=== PATIENT | female | born 1955 | race Caucasian/White ===

== ENCOUNTER 2022-08-05 09:52 | Outpatient (OUT) | payer BC, SELFPAY ==
--- NOTE | 2022-08-05 10:09 | MM_ITS ---
Patient: KASSI MONAHAN Exam Date: 08/05/2022 : 1955 Gender:F Ordering : DR Ismael Reese . Admission #: [id number] Family : Order #: [id number] CLICK HERE TO VIEW EXAM RADIOLOGY REPORT PROCEDURE: MM TOMOSYNTHESIS SCREENING BI COMPARISON: MG MAMM SCREEN 3D NANDO CAD, 07/20/2021. INDICATIONS: Screening Calculator Name NCI Breast Cancer Risk Assessment Tool 5 Year Breast Cancer Risk 3.50% Lifetime Breast Cancer Risk 11.10% Personal Breast Cancer No Personal Ovarian Cancer No Treatments None Family Cancers Grandmother-maternal with breast cancer at age 60; Mother with skin cancer at age 58; Sister with skin cancer at age ~40; Brother with skin cancer at age ~60. LOCATION: The [facility] BREAST COMPOSITION: Extremely dense, which lowers the sensitivity of mammography. FINDINGS: DIAGNOSTIC CATEGORY 0--INCOMPLETE: NEED ADDITIONAL IMAGING EVALUATION. RIGHT BREAST: 15 x 8 x 7 mm partially circumscribed mass within the upper outer mid breast. Spot magnification views and ultrasound evaluation recommended. LEFT BREAST: No significant suspicious finding. RECOMMENDATIONS: ADDITIONAL MAMMOGRAPHIC VIEWS REQUIRED: RIGHT BREAST - RIGHT CRANIOCAUDAL SPOT MAGNIFICATION VIEW - RIGHT OBLIQUE SPOT MAGNIFICATION VIEW - ULTRASOUND: RIGHT BREAST PLEASE NOTE: A NORMAL MAMMOGRAM DOES NOT EXCLUDE THE POSSIBILITY OF BREAST CANCER. A CLINICALLY SUSPICIOUS PALPABLE LUMP SHOULD BE BIOPSIED. Dictated by: Jose Barajas M.D. on 08/05/2022 at 13:21 Approved by: Jose Barajas M.D. on 08/05/2022 at 13:30
--- NOTE | 2022-08-05 10:16 | XR_ITS ---
[address] [address] Patient Name: KASSI MONAHAN MRN: [id number] date: 1955 Sex: F Assigned Patient Location: [facility] Current Patient Location: [facility] Accession/Order Number: [id number] Exam Date: 08/05/2022 10:30 Report Date: 08/05/2022 10:50 At the request of: GUY ESTES Procedure: XR DEXA axial skeleton EXAMINATION: XR DEXA axial skeleton HISTORY: Osteoporosis M81.0 COMPARISON: DEXA bone densitometry 08/01/2020 TECHNIQUE: Dual-energy X-ray absorptiometry (DXA) was performed. FINDINGS: FOREARM ANALYSIS: Average bone mineral density is 0.5-0 g/cm2. T-score (standard deviation relative to young adult mean): -2.7 . -9.7% change since prior study. Right femoral trochanter Lowest bone mineral density is within the 0.511, -3.0 g/cm2. T-score (standard deviation relative to young adult mean): -0.5% change since prior study. . IMPRESSION: World Rudy Organization Classification: Osteoporosis - High Fracture Risk Electronically authenticated by: ABIOLA VILLASEÑOR Date: 08/05/2022 10:50
== END 2022-08-05 09:53 ==
PROVIDERS: PCP Obstetrics & Gynecology; Visit Provider Obstetrics & Gynecology
DX: Z12.31 Encounter for screening mammogram for malignant neoplasm of breast (principal); Z80.3 Family history of malignant neoplasm of breast; Z80.8 Family history of malignant neoplasm of other organs or systems; M81.0 Age-related osteoporosis without current pathological fracture
CPT/HCPCS: 77063; 77067; 77080

== ENCOUNTER 2022-08-23 13:13 | Outpatient (OUT) | payer BC, SELFPAY ==
--- NOTE | 2022-08-23 13:17 | US_ITS ---
Patient: KASSI MONAHAN Exam Date: 08/23/2022 : 1955 Gender:F Ordering : DR Ismael Reese . Admission #: [id number] Family : Order #: [id number] CLICK HERE TO VIEW EXAM RADIOLOGY REPORT PROCEDURE: MAMMOGRAM RIGHT DIAGNOSTIC DIGITAL FOLLOW UP, 08/23/2022, 13:06 US BREAST RT LIMITED, 08/23/2022, 14:18 COMPARISON: MM TOMOSYNTHESIS SCREENING BI, 08/05/2022. INDICATIONS: abnormal mammogram R92.8 Calculator Name NCI Breast Cancer Risk Assessment Tool 5 Year Breast Cancer Risk 3.50% Lifetime Breast Cancer Risk 11.10% Personal Breast Cancer No Personal Ovarian Cancer No Treatments None Family Cancers Grandmother-maternal with breast cancer at age 60; Mother with skin cancer at age 58; Sister with skin cancer at age ~40; Brother with skin cancer at age ~60. LOCATION: [facility] BREAST COMPOSITION: Extremely dense, which lowers the sensitivity of mammography. FINDINGS: DIAGNOSTIC CATEGORY 3--PROBABLY BENIGN FINDING. THE FOLLOWING FINDING(S) HAS A HIGH PROBABILITY OF A BENIGN ETIOLOGY: Three spot compression images demonstrate a persistent. Ultrasound demonstrates at the 10 o'clock position in oval lobular well-defined 8.1 x 2.3 x 4.7 mm area of heterogeneous hypo echogenicity. Six-month follow-up mammogram and ultrasound is recommended to document stability. Additionally noted at the 9 o'clock position is a 3.6 mm area of anechoic echogenicity with slight increased acoustic through transmission felt to be a simple cyst RECOMMENDATIONS: SHORT TERM FOLLOW-UP DIAGNOSTIC MAMMOGRAM RIGHT BREAST IN 6 MONTHS. SHORT TERM FOLLOW-UP ULTRASOUND RIGHT BREAST IN 6 MONTHS. PLEASE NOTE: A NORMAL MAMMOGRAM DOES NOT EXCLUDE THE POSSIBILITY OF BREAST CANCER. A CLINICALLY SUSPICIOUS PALPABLE LUMP SHOULD BE BIOPSIED. Dictated by: Davon Horton MD on 08/23/2022 at 14:35 Approved by: Davon Horton MD on 08/23/2022 at 14:38
== END 2022-08-23 13:14 | disposition home or self-care (01) ==
LOC: MAMMO 13:14
PROVIDERS: PCP Obstetrics & Gynecology; Visit Provider Obstetrics & Gynecology
DX: R92.8 Other abnormal and inconclusive findings on diagnostic imaging of breast (principal); Z80.3 Family history of malignant neoplasm of breast; Z80.8 Family history of malignant neoplasm of other organs or systems
CPT/HCPCS: 76642; 77065

== ENCOUNTER 2023-03-20 10:46 | Outpatient (OUT) | payer BC, SELFPAY ==
--- NOTE | 2023-03-20 10:55 | MM_ITS ---
Patient Name: KASSI MONAHAN MR#: [id number] : 1955 Exam Date: 03/20/2023 Ordering Doctor: DR Ismael Reese . RADIOLOGY REPORT PROCEDURE: MM TOMOSYNTHESIS DIAGNOSTIC RT, 03/20/2023, 11:04 US BREAST RT LIMITED, 03/20/2023, 11:34 COMPARISON: US BREAST RT LIMITED, 03/20/2023. US BREAST RT LIMITED, 08/23/2022. MM DIAGNOSTIC MAMMO UNILAT RT, 08/23/2022. INDICATIONS: breast pain N64.4 Calculator Name NCI Breast Cancer Risk Assessment Tool 5 Year Breast Cancer Risk 3.50% Lifetime Breast Cancer Risk 10.60% Personal Breast Cancer No Personal Ovarian Cancer No Treatments None Family Cancers Grandmother-maternal with breast cancer at age 60; Mother with skin cancer at age 58; Sister with skin cancer at age ~40; Brother with skin cancer at age ~60. LOCATION: The [facility] BREAST COMPOSITION: Extremely dense, which lowers the sensitivity of mammography. FINDINGS: DIAGNOSTIC CATEGORY 2--BENIGN FINDING. NO CHANGE FROM COMPARISON. The right breast is stable in size and overall fibroglandular configuration. A 6.8 x 3.8 mm oval nodules identified in the upper outer quadrant. Ultrasound demonstrates at the 9 o'clock position a 3.6 mm area of anechoic echogenicity, stable. Identified at the 10 o'clock position is a stable area of oval hypo echogenicity measuring 4.8 x 3.1 x 3.9 cm. Given the stability on the mammogram and ultrasound. No further evaluation is required. The patient is due a bilateral screening mammogram August of 2023 RECOMMENDATIONS: ROUTINE MAMMOGRAM AND CLINICAL EVALUATION IN 12 MONTHS. PLEASE NOTE: A NORMAL MAMMOGRAM DOES NOT EXCLUDE THE POSSIBILITY OF BREAST CANCER. A CLINICALLY SUSPICIOUS PALPABLE LUMP SHOULD BE BIOPSIED. Dictated by: Davon Horton MD on 03/20/2023 at 12:00 Approved by: Davon Horton MD on 03/20/2023 at 12:04
--- NOTE | 2023-03-20 11:10 | US_ITS ---
Patient Name: KASSI MONAHAN MR#: [id number] : 1955 Exam Date: 03/20/2023 Ordering Doctor: DR Ismael Reese . RADIOLOGY REPORT PROCEDURE: MM TOMOSYNTHESIS DIAGNOSTIC RT, 03/20/2023, 11:04 US BREAST RT LIMITED, 03/20/2023, 11:34 COMPARISON: US BREAST RT LIMITED, 03/20/2023. US BREAST RT LIMITED, 08/23/2022. MM DIAGNOSTIC MAMMO UNILAT RT, 08/23/2022. INDICATIONS: breast pain N64.4 Calculator Name NCI Breast Cancer Risk Assessment Tool 5 Year Breast Cancer Risk 3.50% Lifetime Breast Cancer Risk 10.60% Personal Breast Cancer No Personal Ovarian Cancer No Treatments None Family Cancers Grandmother-maternal with breast cancer at age 60; Mother with skin cancer at age 58; Sister with skin cancer at age ~40; Brother with skin cancer at age ~60. LOCATION: The [facility] BREAST COMPOSITION: Extremely dense, which lowers the sensitivity of mammography. FINDINGS: DIAGNOSTIC CATEGORY 2--BENIGN FINDING. NO CHANGE FROM COMPARISON. The right breast is stable in size and overall fibroglandular configuration. A 6.8 x 3.8 mm oval nodules identified in the upper outer quadrant. Ultrasound demonstrates at the 9 o'clock position a 3.6 mm area of anechoic echogenicity, stable. Identified at the 10 o'clock position is a stable area of oval hypo echogenicity measuring 4.8 x 3.1 x 3.9 cm. Given the stability on the mammogram and ultrasound. No further evaluation is required. The patient is due a bilateral screening mammogram August of 2023 RECOMMENDATIONS: ROUTINE MAMMOGRAM AND CLINICAL EVALUATION IN 12 MONTHS. PLEASE NOTE: A NORMAL MAMMOGRAM DOES NOT EXCLUDE THE POSSIBILITY OF BREAST CANCER. A CLINICALLY SUSPICIOUS PALPABLE LUMP SHOULD BE BIOPSIED. Dictated by: Davon Horton MD on 03/20/2023 at 12:00 Approved by: Davon Horton MD on 03/20/2023 at 12:04
== END 2023-03-20 10:47 | disposition home or self-care (01) ==
LOC: MAMMO 10:46
PROVIDERS: PCP Obstetrics & Gynecology; Visit Provider Obstetrics & Gynecology
DX: N64.4 Mastodynia (principal); Z80.3 Family history of malignant neoplasm of breast; Z80.8 Family history of malignant neoplasm of other organs or systems
CPT/HCPCS: 76642; 77065; G0279

== ENCOUNTER 2023-07-22 | Outpatient (REF) | payer BC, SELFPAY ==
[2023-07-25 21:07] LABS: Age Gdln ACOG Testing Note (.); Pap IG (Image Guided) Note (.)
== END 2023-07-22 00:01 | disposition home or self-care (01) ==
LOC: LAB
PROVIDERS: PCP Obstetrics & Gynecology; Visit Provider Obstetrics & Gynecology
DX: Z01.419 Encounter for gynecological examination (general) (routine) without abnormal findings (principal)
CPT/HCPCS: G0145

== ENCOUNTER 2023-10-27 10:03 | Outpatient (OUT) | payer BC, SELFPAY ==
--- NOTE | 2023-10-27 10:06 | MM_ITS ---
Patient Name: KASSI MONAHAN MR#: [id number] : 1955 Exam Date: 10/27/2023 Ordering Doctor: DR Ismael Reese . RADIOLOGY REPORT PROCEDURE: MM TOMOSYNTHESIS SCREENING BI COMPARISON: MM DIAGNOSTIC MAMMO UNILAT RT, 08/23/2022. MM TOMOSYNTHESIS DIAGNOSTIC RT, 03/20/2023. INDICATIONS: Screening Calculator Name NCI Breast Cancer Risk Assessment Tool 5 Year Breast Cancer Risk 3.50% Lifetime Breast Cancer Risk 10.60% Personal Breast Cancer No Personal Ovarian Cancer No Treatments None Family Cancers Grandmother-maternal with breast cancer at age 60; Mother with skin cancer at age 58; Sister with skin cancer at age ~40; Brother with skin cancer at age ~60. LOCATION: The [facility] BREAST COMPOSITION: The breasts are extremely dense, which lowers the sensitivity of mammography. FINDINGS: DIAGNOSTIC CATEGORY 2--BENIGN FINDING. NO CHANGE FROM COMPARISON. Scattered benign-appearing nodules are present. Scattered benign-appearing calcifications are present. Scattered benign-appearing lymph nodes are present. RIGHT BREAST: No significant suspicious finding. LEFT BREAST: No significant suspicious finding. RECOMMENDATIONS: ROUTINE MAMMOGRAM AND CLINICAL EVALUATION IN 12 MONTHS. PLEASE NOTE: A NORMAL MAMMOGRAM DOES NOT EXCLUDE THE POSSIBILITY OF BREAST CANCER. A CLINICALLY SUSPICIOUS PALPABLE LUMP SHOULD BE BIOPSIED. Dictated by: Davon Horton MD on 10/27/2023 at 16:04 Approved by: Davon Horton MD on 10/27/2023 at 16:07
== END 2023-10-27 10:04 | disposition home or self-care (01) ==
LOC: MAMMO 10:03
PROVIDERS: PCP Obstetrics & Gynecology; Visit Provider Obstetrics & Gynecology
DX: Z12.31 Encounter for screening mammogram for malignant neoplasm of breast (principal); Z80.3 Family history of malignant neoplasm of breast; Z80.8 Family history of malignant neoplasm of other organs or systems
CPT/HCPCS: 77063; 77067

== ENCOUNTER 2024-07-22 15:03 | Outpatient (REF) | payer BC, SELFPAY ==
--- OUTSIDE RECORDS SUMMARY | 2024-07-22 08:17 | XMS_ITS ---
Author Name Auto Generated Organization [facility] Care Team Providers Care Oil Changer Name Role Phone GUY ESTES Attending Unavailable PROBLEMS No Problem Records Found PROCEDURES No Procedure Records Found RESULTS No Result Records Found ALLERGIES No Allergies Records Found ENCOUNTERS ADMIT/DISCHARGE ACCOUNT NUMBER ADMITTING ENCOUNTER CLASS LOCATION SOURCE 07/22/2024/ 5 [id number] Ambulatory Building:[facility] EPIC PAYERS ENCOUNTER GUARANTOR PAYER SUBSCRIBER SOURCE 07/22/2024 KASSI STRATTON: [id number] [address] [place], [place] [address] [address]Jse: () Primary Insurance:[facility] licy Number: [id number] ctive Date:2022-03-03 ABIOLA STRATTON: [id number] [address] [place] [id number] [facility] EPIC
--- OUTSIDE RECORDS SUMMARY | 2024-07-22 08:30 | XMS_ITS | Encounter Summary ---
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 Name Role Phone Unavailable Primary Care Provider Unavailabl e Reason for Visit * Reason Comments Well Women Visit Encounter Details Date Type Department Care Team (Late st Contact Info) Description 07/22/2024 8:30 AM EDT Office Visit [facility] [address] [place] [address] Ismael Reese, DO [address] [place] [address] Well woman exam with routine gynecological exam; Breast cancer screening by mammogram; Postmenopausal state Social History Tobacco Use Types Packs/Day Years Used Date Smoking Tobacco: Never Smokeless Tobacco: Never Alcohol Use Standard Drinks/Week Comments Never 0 (1 standard drink = 0.6 oz pur e alcohol) Comments No Sex and Gender Information Value Date Recorded Sex Assigned at Not on file Legal Sex Female 6:43 PM EDT Gender Identity Not on file Sexual Orientation Not on file documented as of this encounter Last Filed Vital Signs Vital Sign Reading Time Taken Comments Blood Pressure 120/70 07/22/2024 8:32 AM EDT Pulse - - Temperature - - Respiratory Rate - - Oxygen Saturation - - Inhaled Oxygen Concentration - - Weight 69.8 kg (153 lb 12.8 oz) 07/22/2024 8:32 AM EDT Height - - Body Mass Index 25.59 07/22/2023 8:57 AM EDT documented in this encounter Progress Notes * Ivette Donnelly LPN - 07/22/2024 8:30 AM EDT Reason for Appointment: Patient ID: Eli Tineo is a 68 y.o. female who presents for Well Women Visit Patient presents today for Annual Exam. MEDICATIONS Current Outpatient Medications Medication Instructions ??? estradiol (ESTRACE) 0.5 mg, Oral, Daily ALLERGIES Allergies Allergen Reactions ??? Codeine GI intolerance PROBLEMS Active Ambulatory Problems Diagnosis Date Noted ??? No Active Ambulatory Problems Resolved Ambulatory Problems Diagnosis Date Noted ??? No Resolved Ambulatory Problems Past Medical History: Diagnosis Date ??? History of basal cell cancer ??? History of uterine fibroid ??? Hormone replacement therapy ??? Menopausal symptom ??? Osteoporosis (CMS/HCC) ??? Scoliosis ??? Yeast infection HISTORY PAST MEDICAL HISTORY SOCIAL HISTORY Past Medical History: Diagnosis Date ??? History of basal cell cancer ??? History of uterine fibroid ??? Hormone replacement therapy ??? Menopausal symptom ??? Osteoporosis (CMS/HCC) ??? Scoliosis ??? Yeast infection Social History Tobacco Use ??? Smoking status: Never ??? Smokeless tobacco: Never Substance Use Topics ??? Alcohol use: Never ??? Drug use: Never FAMILY HISTORY Family History Problem Relation Name Age of Onset ??? Sudden Father SURGICAL HISTORY Past Surgical History: Procedure Laterality Date ??? APPENDECTOMY ??? BREAST BIOPSY ??? TOTAL ABDOMINAL HYSTERECTOMY W/ BILATERAL SALPINGOOPHORECTOMY REVIEW OF SYSTEMS Review of Systems: Review of Systems Constitutional: Negative. HENT: Negative. Eyes: Negative. Respiratory: Negative. Cardiovascular: Negative. Gastrointestinal: Negative. Genitourinary: Negative. Musculoskeletal: Negative. Skin: Negative. Neurological: Negative. All other systems reviewed and are negative. Hematological: Negative. Endocrine: Negative. Allergic/Immunologic: Negative. OBJECTIVE Objective: Physical Exam Constitutional: Appearance: Normal appearance. She is well-developed. Genitourinary: Vulva normal. Vaginal cuff intact. Cervix is absent. Uterus is absent. Breasts: Breasts are soft. Right: Normal. Left: Normal. Cardiovascular: Rate and Rhythm: Normal rate and regular rhythm. Abdominal: General: Bowel sounds are normal. There is no distension. Palpations: Abdomen is soft. Tenderness: There is no abdominal tenderness. There is no guarding or rebound. Musculoskeletal: General: No swelling. Normal range of motion. Right lower leg: No edema. Left lower leg: No edema. Neurological: Mental Status: She is alert and oriented to person, place, and time. Skin: General: Skin is warm and dry. Psychiatric: Mood and Affect: Mood normal. Behavior: Behavior normal. Vitals and nursing note reviewed. Exam conducted with a aerophysics engineer present. Vitals: Estimated body mass index is 25.59 kg/m?? as calculated from the following: Height as of 07/22/23: 5' 5 . Weight as of this encounter: 153 lb 12.8 oz. BP: 120/70 No LMP recorded. Patient has had a hysterectomy. ASSESSMENT & PLAN ICD-10-CM 1. Well woman exam with routine gynecological exam Z01.419 THIN PREP TIS PAP AND HR HPV DNA 2. Breast cancer screening by mammogram Z12.31 Bilateral screening mammogram Bilateral screening mammogram 3. Postmenopausal state Z78.0 DEXA bone density Annual: Patient presents today for an annual exam. Patient states she is doing well and has no complaints. Pap was obtained without difficulty and patient given mammogram order to have scheduled/obtained. Orders Placed This Encounter Procedures ??? Bilateral screening mammogram ??? DEXA bone density Follow Up: Patient is to return in one year for annual unless needed otherwise. Patient will call office if she desires to have colonoscopy done and then referral can be made to Dr. Jackson. Documented by Ivette Donnelly LPN on behalf of: Ismael Reese DO documented in this encounter Plan of Treatment Upcoming Encounters Date Type Department Care Team (Late st Contact Info) Description 07/28/2025 9:00 AM EDT Office Visit [facility] [address] [place] [address] Ismael Reese DO [address] [place] [address] Scheduled Orders Name Type Priority Associated Diagnoses Orde r Schedule Bilateral screening mammogram Imaging Routine Breast cancer screening by mammogram Expected: 07/22/2024, Expires: 09/21/2025 DEXA bone density Imaging Routine Postmenopausal state Expected: 07/22/2024 (Approximate), Expires: 07/22/2025 THIN PREP TIS PAP AND HR HPV DNA Pathology and Cytology Routine Well woman exam with routine gynecological exam Ordered: 07/22/2024 documented as of this encounter Procedures Procedure Name Priority Date/Time Associated Diagnosis Comments PAP SMEAR Routine 07/22/2023 12:00 AM EDT documented in this encounter Results * Pap Smear (07/22/2023 12:00 AM EDT) Swab Cervical swab / Unknown us [facility] Nurse LAB CYTOLOGY ORDERABLES Final Result EXTERNAL LAB documented in this encounter Visit Diagnoses Diagnosis Well woman exam with routine gynecological exam Routine gynecological examination Breast cancer screening by mammogram Postmenopausal state Asymptomatic postmenopausal status (age-related) (natural) documented in this encounter
--- OUTSIDE RECORDS SUMMARY | 2024-07-22 15:05 | XMS_ITS | Encounter Summary ---
Author Organization [facility] Address [address] [place] [address] Care Team Providers Care Wearing Apparel Folder Name Role Phone Unavailable Primary Care Provider Unavailabl e Encounter Details Date Type Department Care Team (Late Contact Info) Description 09/05/2022 Abstract [facility] [address] [place] [address] Ismael Reese, [facility] [address] [place], [facility] Social History Tobacco Use Types Packs/Day Years [...] on file documented as of this encounter Plan of Treatment Upcoming Encounters Date Type Department Care Team (Late st Contact Info) Description 07/28/2025 9:00 AM EDT Office Visit [facility] [address] [place] [phone] Ismael Reese DO [address] [place], [facility] documented as of this encounter Visit Diagnoses Not on filedocumented in this encounter
--- OUTSIDE RECORDS SUMMARY | 2024-07-22 15:05 | XMS_ITS | Encounter Summary ---
Author Organization [facility] Address [address] [place] [address] Care Team Providers Care Sales Systems Engineer Name Role Phone Unavailable Primary Care Provider Unavailabl e Encounter Details Date Type Department Care Team (Late st Contact Info) Description 03/20/2023 Clinisync Result Encounter [facility] External Department Unsolicited Ismael Reese, DO [address] [place] [address] Social History Tobacco Use Types Packs/Day Years [...] EDT Office Visit [facility] [address] [facility] [place] [phone] Ismael Reese, DO [address] [place] [address] documented as of this encounter Procedures Procedure Name Priority Date/Time Associated Diagnosis Comments BI US BREAST LIMITED RIGHT 03/20/2023 12:04 PM EST documented in this encounter Results * Right breast US limited (03/20/2023 12:04 PM EST) Anatomical Region Laterality Modality Breast Right Ultrasound 03/20/2023 12:0 4 PM EST Narrative 03/20/2023 12:05 PM EST The [address] [address] Ultrasound Report Signed Patient: ELI TINEO MR#: [id number] : 1955 Acct:[id number] Age/Sex: 67 / F ADM Date: 03/20/23 Loc: MAMMO Attending Dr: Ismael Reese D.O. Ordering Physician: Ismael Reese D.O. Date of Service: 03/20/23 Procedure(s): US breast RT limited Accession Number(s): [id number] cc: Ismael Reese D.O. Patient Name: ELI TINEO MR#: [id number] : 1955 Exam Date: 03/20/2023 Ordering Doctor: DR Ismael Reese . RADIOLOGY REPORT PROCEDURE: MM TOMOSYNTHESIS DIAGNOSTIC RT, 03/20/2023, 11:04 US BREAST RT LIMITED, 03/20/2023, 11:34 COMPARISON: US BREAST RT LIMITED, 03/20/2023. US BREAST RT LIMITED, 08/23/2022. MM DIAGNOSTIC MAMMO UNILAT RT, 08/23/2022. INDICATIONS: breast pain N64.4 Calculator Name NCI Breast Cancer Risk Assessment Tool 5 Year Breast Cancer Risk 3.50% Lifetime Breast Cancer Risk 10.60% Personal Breast Cancer No Personal Ovarian Cancer No Treatments None Family Cancers Grandmother-maternal with breast cancer at age 60; Mother with skin cancer at age 58; Sister with skin cancer at age 40; Brother with skin cancer at age 60. LOCATION: The [facility] BREAST COMPOSITION: Extremely dense, which lowers the sensitivity of mammography. FINDINGS: DIAGNOSTIC CATEGORY 2--BENIGN FINDING. NO CHANGE FROM COMPARISON. The right breast is stable in size and overall fibroglandular configuration. A 6.8 x 3.8 mm oval nodules identified in the upper outer quadrant. Ultrasound demonstrates at the 9 o'clock position a 3.6 mm area of anechoic echogenicity, stable. Identified at the 10 o'clock position is a stable area of oval hypo echogenicity measuring 4.8 x 3.1 x 3.9 cm. Given the stability on the mammogram and ultrasound. No further evaluation is required. The patient is due a bilateral screening mammogram August of 2023 RECOMMENDATIONS: ROUTINE MAMMOGRAM AND CLINICAL EVALUATION IN 12 MONTHS. PLEASE NOTE: A NORMAL MAMMOGRAM DOES NOT EXCLUDE THE POSSIBILITY OF BREAST CANCER. A CLINICALLY SUSPICIOUS PALPABLE LUMP SHOULD BE BIOPSIED. Dictated by: Davon Horton MD on 03/20/2023 at 12:00 Approved by: Davon Horton MD on 03/20/2023 at 12:04 Dictated By: Davon Horton M.D. Signed By: 03/20/23 1205 DD/ 1204 TD/TT: Safety Investigator: Procedure Note Radiology, Radiologist, - 03/20/2023 [place] [address] Ultrasound Report Signed Patient: ELI TINEO LMR#: [id number] : 1955cct:[id number] Age/Sex: 67 / FADM Date: 03/20/23 Loc: MAMMO Attending Dr: Ismael Reese D.O. Ordering Physician: Ismael Reese D.O. Date of Service: 03/20/23 Procedure(s): US breast RT limited Accession Number(s): [id number] cc: Ismael Reese D.O. Patient Name: ELI TINEO MR#: [id number] : 1955 Exam Date: 03/20/2023 Ordering Doctor: DR Ismael Resee . RADIOLOGY REPORT PROCEDURE: MM TOMOSYNTHESIS DIAGNOSTIC RT, 03/20/2023, 11:04 US BREAST RT LIMITED, 03/20/2023, 11:34 COMPARISON: US BREAST RT LIMITED, 03/20/2023. US BREAST RT LIMITED, 08/23/2022. MM DIAGNOSTIC MAMMO UNILAT RT, 08/23/2022. INDICATIONS: breast pain N64.4 Calculator Name NCI Breast Cancer Risk Assessment Tool 5 Year Breast Cancer Risk 3.50% Lifetime Breast Cancer Risk 10.60% Personal Breast Cancer No Personal Ovarian Cancer No Treatments None Family Cancers Grandmother-maternal with breast cancer at age 60;Mother with skin cancer at age 58; Sister with skin cancer at age 40; Brotherwith skin cancer at age 60. LOCATION: [facility] BREAST COMPOSITION: Extremely dense, which lowers the sensitivity of mammography. FINDINGS: DIAGNOSTIC CATEGORY 2--BENIGN FINDING. NO CHANGE FROM COMPARISON. The right breast is stable in size and overall fibroglandularconfiguration. A 6.8 x 3.8 mm oval nodules identified in the upper outer quadrant. Ultrasound demonstrates at the 9 o'clock position a 3.6 mm area ofanechoic echogenicity, stable. Identified at the 10 o'clock position is a stablearea of oval hypo echogenicity measuring 4.8 x 3.1 x 3.9 cm. Given thestability on the mammogram and ultrasound. No further evaluation is required. The patient is due a bilateral screening mammogram August of 2023 RECOMMENDATIONS: ROUTINE MAMMOGRAM AND CLINICAL EVALUATION IN 12 MONTHS. PLEASE NOTE: A NORMAL MAMMOGRAM DOES NOT EXCLUDE THE POSSIBILITY OFBREAST CANCER. A CLINICALLY SUSPICIOUS PALPABLE LUMP SHOULD BE BIOPSIED. Dictated by: Davon Horton MD on 03/20/2023 at 12:00 Approved by: Davon Horton MD on 03/20/2023 at 12:04 Dictated By: Davon Horton M.D. Signed By:03/20/23 1205 DD/ 1204 TD/TT: Safety Investigator: us Ismael Reese DO IM US PROCEDURES Final Result documented in this encounter Visit Diagnoses Not on filedocumented in this encounter
--- OUTSIDE RECORDS SUMMARY | 2024-07-22 15:06 | XMS_ITS | Encounter Summary ---
Author Organization [facility] Address [address] [place] [address] Care Team Providers Care Manager Business Management Name Role Phone Unavailable Primary Care Provider Unavailabl e Encounter Details Date Type Department Care Team (Late st Contact Info) Description 10/27/2023 Clinisync Result Encounter [facility] External Department Unsolicited Ismael Reese, DO [address] [place] [address] Social History Tobacco Use Types Packs/Day Years [...] EDT Office Visit [facility] OB [address] [place] [phone] Ismael Reese, DO [address] [place] [address] documented as of this encounter Procedures Procedure Name Priority Date/Time Associated Diagnosis Comments MM TOMOSYNTHESIS SCREENING BI 10/27/2023 4:08 PM EDT documented in this encounter Results * MM TOMOSYNTHESIS SCREENING BI (10/27/2023 4:08 PM EDT) Anatomical Region Laterality Modality Other 10/27/2023 4:08 PM EDT Narrative 10/27/2023 4:09 PM EDT The [address] [address] Mammography Report Signed Patient: ELI TINEO MR#: [id number] : 1955 Acct:[id number] Age/Sex: 67 / F ADM Date: 10/27/23 Loc: MAMMO Attending Dr: Ismael Reese D.O. Ordering Physician: Ismael Reese D.O. Results: Date of Service: 10/27/23 Follow Up: Procedure(s): MM tomosynthesis screening BI Accession Number(s): [id number] cc: Ismael Reese D.O. Patient Name: ELI TINEO MR#: [id number] : 1955 Exam Date: 10/27/2023 Ordering Doctor: DR Ismael Reese . RADIOLOGY REPORT PROCEDURE: MM TOMOSYNTHESIS SCREENING BI COMPARISON: MM DIAGNOSTIC MAMMO UNILAT RT, 08/23/2022. MM TOMOSYNTHESIS DIAGNOSTIC RT, 03/20/2023. INDICATIONS: Screening Calculator Name NCI Breast Cancer Risk Assessment Tool 5 Year Breast Cancer Risk 3.50% Lifetime Breast Cancer Risk 10.60% Personal Breast Cancer No Personal Ovarian Cancer No Treatments None Family Cancers Grandmother-maternal with breast cancer at age 60; Mother with skin cancer at age 58; Sister with skin cancer at age 40; Brother with skin cancer at age 60. LOCATION: The [facility] BREAST COMPOSITION: The breasts are extremely dense, which lowers the sensitivity of mammography. FINDINGS: DIAGNOSTIC CATEGORY 2--BENIGN FINDING. NO CHANGE FROM COMPARISON. Scattered benign-appearing nodules are present. Scattered benign-appearing calcifications are present. Scattered benign-appearing lymph nodes are present. RIGHT BREAST: No significant suspicious finding. LEFT BREAST: No significant suspicious finding. RECOMMENDATIONS: ROUTINE MAMMOGRAM AND CLINICAL EVALUATION IN 12 MONTHS. PLEASE NOTE: A NORMAL MAMMOGRAM DOES NOT EXCLUDE THE POSSIBILITY OF BREAST CANCER. A CLINICALLY SUSPICIOUS PALPABLE LUMP SHOULD BE BIOPSIED. Dictated by: Davon Horton MD on 10/27/2023 at 16:04 Approved by: Davon Horton MD on 10/27/2023 at 16:07 Dictated By: Davon Horton M.D. Signed By: 10/27/23 1609 DD/ 1608 TD/TT: Seasonal Warehouse Associate: Procedure Note Radiology, Radiologist, - 10/27/2023 [place] [address] Mammography Report Signed Patient: ELI TINEO LMR#: [id number] : 1955cct:[id number] Age/Sex: 67 / FADM Date: 10/27/23 Loc: MAMMO Attending Dr: Ismael Reese D.O. Ordering Physician: Ismael Reese D.O.Results: Date of Service: 10/27/23Follow Up: Procedure(s): MM tomosynthesis screening BI Accession Number(s): [id number] cc: Ismael Reese D.O. Patient Name: ELI TINEO MR#: [id number] : 1955 Exam Date: 10/27/2023 Ordering Doctor: DR Ismael Reese . RADIOLOGY REPORT PROCEDURE: MM TOMOSYNTHESIS SCREENING BI COMPARISON: MM DIAGNOSTIC MAMMO UNILAT RT, 08/23/2022. MMTOMOSYNTHESIS DIAGNOSTIC RT, 03/20/2023. INDICATIONS: Screening Calculator Name NCI Breast Cancer Risk Assessment Tool 5 Year Breast Cancer Risk 3.50% Lifetime Breast Cancer Risk 10.60% Personal Breast Cancer No Personal Ovarian Cancer No Treatments None Family Cancers Grandmother-maternal with breast cancer at age 60;Mother with skin cancer at age 58; Sister with skin cancer at age 40; Brotherwith skin cancer at age 60. LOCATION: The [facility] BREAST COMPOSITION: The breasts are extremely dense, which lowers the sensitivity of mammography. FINDINGS: DIAGNOSTIC CATEGORY 2--BENIGN FINDING. NO CHANGE FROM COMPARISON. Scattered benign-appearing nodules are present. Scatteredbenign-appearing calcifications are present. Scattered benign-appearing lymph nodes are present. RIGHT BREAST: No significant suspicious finding. LEFT BREAST: No significant suspicious finding. RECOMMENDATIONS: ROUTINE MAMMOGRAM AND CLINICAL EVALUATION IN 12 MONTHS. PLEASE NOTE: A NORMAL MAMMOGRAM DOES NOT EXCLUDE THE POSSIBILITY OFBREAST CANCER. A CLINICALLY SUSPICIOUS PALPABLE LUMP SHOULD BE BIOPSIED. Dictated by: Davon Horton MD on 10/27/2023 at 16:04 Approved by: Davon Horton MD on 10/27/2023 at 16:07 Dictated By: Davon Horton M.D. Signed By:10/27/23 1609 DD/ 1608 TD/TT: Seasonal Warehouse Associate: us Ismael Reese DO [facility] Final Result documented in this encounter Visit Diagnoses Not on filedocumented in this encounter
--- OUTSIDE RECORDS SUMMARY | 2024-07-22 15:06 | XMS_ITS | Encounter Summary ---
Author Organization [facility] Address [address] [place] [address] Care Team Providers Care Direct Support Staff Name Role Phone Unavailable Primary Care Provider Unavailabl e Encounter Details Date Type Department Care Team (Late st Contact Info) Description 03/20/2023 Clinisync Result Encounter [facility] External Department Unsolicited Ismael Reese, DO [address] [place], [place] [phone] Social History Tobacco Use Types Packs/Day Years [...] EDT Office Visit [facility] [address] [facility] [place] [phone] Ismael Reese, DO [address] [place] [address] documented as of this encounter Procedures Procedure Name Priority Date/Time Associated Diagnosis Comments MM TOMOSYNTHESIS DIAGNOSTIC RT 03/20/2023 12:04 PM EST documented in this encounter Results * MM TOMOSYNTHESIS DIAGNOSTIC RT (03/20/2023 12:04 PM EST) Anatomical Region Laterality Modality Other 03/20/2023 12:0 4 PM EST Narrative 03/20/2023 12:05 PM EST The [address] [address] Mammography Report Signed Patient: ELI TINEO MR#: [id number] : 1955 Acct:[id number] Age/Sex: 67 / F ADM Date: 03/20/23 Loc: MAMMO Attending Dr: Ismael Reese D.O. Ordering Physician: Ismael Reese D.O. Results: Date of Service: 03/20/23 Follow Up: Procedure(s): MM tomosynthesis diagnostic RT Accession Number(s): [id number] cc: Ismael Reees D.O. Patient Name: ELI TINEO MR#: [id number] : 1955 Exam Date: 03/20/2023 Ordering Doctor: [...] skin cancer at age 58. LOCATION: The [facility] BREAST COMPOSITION: Extremely dense, which lowers [...] Signed By: 03/20/23 1205 DD/ 1204 TD/TT: Senior Qa Engineer: Procedure Note Radiology, Radiologist, - 03/20/2023 [place] [address] Mammography Report Signed Patient: ELI TINEO LMR#: [id number] : 1955cct:[id number] Age/Sex: 67 / FADM Date: 03/20/23 Loc: MAMMO Attending Dr: Ismael Reese D.O. Ordering Physician: Ismael Reese D.O.Results: Date of Service: 03/20/23Follow Up: Procedure(s): MM tomosynthesis diagnostic RT Accession Number(s): [id number] cc: Ismael Reese D.O. Patient Name: ELI TINEO MR#: [id number] : 1955 Exam Date: 03/20/2023 Ordering Doctor: [...] skin cancer at age 58. LOCATION: The [facility] BREAST COMPOSITION: Extremely dense, which lowers [...] PALPABLE LUMP SHOULD BE BIOPSIED. Dictated by: aDvon Horton MD on 03/20/2023 at 12:00 Approved by: Davon Horton MD on 03/20/2023 at 12:04 Dictated By: Davon Horton M.D. Signed By:03/20/23 1205 DD/ 1204 TD/TT: Senior Qa Engineer: us [facility] Final Result documented in this encounter Visit Diagnoses Not on filedocumented in this encounter
--- OUTSIDE RECORDS SUMMARY | 2024-07-22 15:06 | XMS_ITS | Encounter Summary ---
Author Organization [facility] Address [address] [place] [address] Care Team Providers Care Cream Buyer Name Role Phone Unavailable Primary Care Provider Unavailabl e Encounter Details Date Type Department Care Team (Late Contact Info) Description 08/19/2022 Abstract [facility] OB [address] [place] [address] Ismael Reese, [facility] [address] [place], [facility]11 Social History Tobacco Use Types Packs/Day Years [...] 07/28/2025 9:00 AM EDT Office Visit [facility] OB [address] [place] [address] Ismael Reese DO [address] [place], [facility]11 documented as of this encounter Visit Diagnoses Not on filedocumented in this encounter
--- OUTSIDE RECORDS SUMMARY | 2024-07-22 15:06 | XMS_ITS | Clinical Summary ---
Author Organization [facility] Address [address] [place] [address] Care Team Providers Care Quality Assurance Supervisor Trim Name Role Phone Unavailable Primary Care Provider Unavailabl e Allergies Active Allergy Reactions Criticality Noted Date Comments Codeine GI intolerance 07/22/2024 Medications estradiol (Estrace) 0.5 MG tabletIndication s:Vaginal dryness Take 1 tablet (0.5 mg) by mouth Daily 30 tablet 11 11/11/2023 Active Encounters Date Type Department Care Team Description 07/22/2024 8:30 AM EDT Office Visit [facility] OB [address] [facility] [facility] [place] [address] Ismael Reese DO Well woman exam with routine gynecological exam; Breast cancer screening by mammogram; Postmenopausal state 07/22/2024 Bamboo flowsheet [facility] OB [address] [facility] [place] [address] Ismael Reese DO from Last 3 Months Family History Medical History Relation Name Comments Sudden Father Relation Name Status Comments Father Social History Tobacco Use Types Packs/Day Years Used Date Smoking Tobacco: Never Smokeless Tobacco: Never Alcohol Use Standard Drinks/Week Comments Never 0 (1 standard drink = 0.6 oz pur e alcohol) Comments No Sex and Gender Information Value Date Recorded Sex Assigned at Not on file Legal Sex Female 6:43 PM EDT Gender Identity Not on file Sexual Orientation Not on file Last Filed Vital Signs Vital Sign Reading Time Taken Comments Blood Pressure 120/70 07/22/2024 8:32 AM EDT Pulse - - Temperature - - Respiratory Rate - - Oxygen Saturation - - Inhaled Oxygen Concentration - - Weight 69.8 kg (153 lb 12.8 oz) 07/22/2024 8:32 AM EDT Height 165.1 cm (5' 5 ) 07/22/2023 8:57 AM EDT Body Mass Index 25.59 07/22/2023 8:57 AM EDT Plan of Treatment Upcoming Encounters Date Type Department Care Team (Late st Contact Info) Description 07/28/2025 9:00 AM EDT Office Visit [facility] OB [address] [facility] [place] [phone] Ismael Reese, DO [address] [place] [address] Insurance [facility]
--- OUTSIDE RECORDS SUMMARY | 2024-07-22 15:06 | XMS_ITS | Encounter Summary ---
Author Organization [facility] Address [address] [place] [address] Care Team Providers Care Business Analyst Manager Name Role Phone Unavailable Primary Care Provider Unavailabl e Encounter Details Date Type Department Care Team (Late st Contact Info) Description 07/22/2024 Bamboo flowsheet [facility] OB [address] [place] [address] Ismael Reese DO [address] [place], [facility]11 Social History Tobacco Use Types Packs/Day [...] 07/28/2025 9:00 AM EDT Office Visit [facility] OB [address] [place] [address] Ismael Reese DO [address] [place], [facility]11 documented as of this encounter Visit Diagnoses Not on filedocumented in this encounter
--- OUTSIDE RECORDS SUMMARY | 2024-07-22 15:06 | XMS_ITS | Encounter Summary ---
Author Organization [facility] Address [address] [place] [address] Care Team Providers Care Slitter Operator Name Role Phone Unavailable Primary Care Provider Unavailabl e Encounter Details Date Type Department Care Team (Late Contact Info) Description 08/15/[address] [facility] OB [address] [place] [address] Ismael Reese, [facility] [address] [place], [facility]11 Social History Tobacco Use Types Packs/Day [...] 07/28/2025 9:00 AM EDT Office Visit [facility] OB [address] [place] [address] Ismael Reese DO [address] [place], [facility]11 documented as of this encounter Visit Diagnoses Not on filedocumented in this encounter
--- OUTSIDE RECORDS SUMMARY | 2024-07-22 15:06 | XMS_ITS | Clinical Summary ---
Author Organization [facility] [facility] Address [id number] [address] [place] [address] Care Team Providers Care Outpatient Interviewing Clerk Name Role Phone Unavailable Primary Care Provider Unavailabl e Allergies No known active allergies Medications estradiol (ESTRACE) 0.5 mg tablet Take 0.5 mg by mouth daily. 3 11/21/2017 Active Active Problems No known active problems Family History Medical History Relation Name Comments Heart disease Father Alzheimer's disease Mother Cancer Mother Relation Name Status Comments Father Mother Social History Tobacco Use Types Packs/Day Years Used Date Smoking Tobacco: Never Smokeless Tobacco: Never Tobacco Cessation:Counseling Given: Yes Alcohol Use Standard Drinks/Week Comments No 0 (1 standard drink = 0.6 oz pur e alcohol) very rarely AUDIT-C Answer Date Recorded Frequency of Alcohol Consumption Never 12/08/2017 Average Number of Drinks Not on file 018 Frequency of Binge Drinking Not on file 10/2017 PHQ-2 Answer Date Recorded Total Score 0 12/08/2017 Childcare Answer Date Recorded Childcare Unknown 08/12/2018 Employment Answer Date Recorded Employment Unknown 08/12/2018 Purpose - Life Answer Date Recorded Purpose and direction in life Unknown Comments No Sex and Gender Information Value Date Recorded Sex Assigned at Not on file Legal Sex Female 11:58 AM EDT Gender Identity Not on file Sexual Orientation Not on file Last Filed Vital Signs Vital Sign Reading Time Taken Comments Blood Pressure 112/68 12/08/2017 2:54 PM EDT Pulse 70 12/08/2017 2:54 PM EDT Temperature 36.6 C (97.8 F) 12/08/2017 2:54 PM EDT Respiratory Rate 16 12/08/2017 2:54 PM EDT Oxygen Saturation 98% 12/08/2017 2:54 PM EDT Inhaled Oxygen Concentration - - Weight 64.4 kg (142 lb) 12/08/2017 2:54 PM EDT Height 170.2 cm (5' 7 ) 12/08/2017 2:54 PM EDT Body Mass Index 22.24 12/08/2017 2:54 PM EDT Plan of Treatment Health Maintenance Due Date Last Done Comments Depression Screening 1965 Tobacco Screening 1965 Adult BMI Screening 12/11/1971 DTaP,Tdap and Td Vaccines (1 - Tdap) 1972 Zoster (Shingles) Vaccine (1 of 2) 12/11/2003 Fall Risk Screening 2018 Influenza Vaccine 11/01/2024 Medical Devices Not on file Insurance [employer]
[2024-07-26 21:07] LABS: Age Gdln ACOG Testing Note (.); Pap IG (Image Guided) Note (.)
== END 2024-07-22 15:04 | disposition home or self-care (01) ==
LOC: LAB 15:03
PROVIDERS: PCP Obstetrics & Gynecology; Visit Provider Obstetrics & Gynecology
DX: Z01.419 Encounter for gynecological examination (general) (routine) without abnormal findings (principal)
CPT/HCPCS: 88175

== ENCOUNTER 2024-10-27 12:22 | Outpatient (OUT) | payer BC, SELFPAY ==
--- OUTSIDE RECORDS SUMMARY | 2024-10-27 12:24 | XMS_ITS | Encounter Summary ---
Author Organization [facility] Address [address] [place] [address] Care Team Providers Care Hydrogeologist Name Role Phone Unavailable Primary Care Provider Unavailabl e Encounter Details Date Type Department Care Team (Late st Contact Info) Description 10/27/2023 Clinisync Result Encounter [facility] External Department Unsolicited Ismael Reese, DO [address] [place] [address] Social History Tobacco Use Types Packs/Day Years [...] Description 07/28/2025 9:00 AM EDT Office Visit [facility] [place] [facility] [address] [place] [phone] Ismael Reese, DO [address] [place] [address] documented as of this encounter Procedures Procedure Name Priority Date/Time Associated Diagnosis Comments MM TOMOSYNTHESIS SCREENING BI 10/27/2023 4:08 PM EDT documented in this encounter Results * MM TOMOSYNTHESIS SCREENING BI (10/27/2023 4:08 PM EDT) Anatomical Region Laterality Modality Other 10/27/2023 4:08 PM EDT Narrative 10/27/2023 4:09 PM EDT [address] [address] Mammography Report Signed Patient: ELI TINEO MR#: [id number] : 1955 Acct:[id number] Age/Sex: 67 / F ADM Date: 10/27/23 Loc: MAMMO Attending Dr: Ismael Reese D.O. Ordering Physician: Ismael Reese D.O. Results: Date of Service: 10/27/23 Follow Up: Procedure(s): MM tomosynthesis screening BI Accession Number(s): [id number] cc: Ismael Reese D.O. Patient Name: ELI TINEO MR#: [id number] : 1955 Exam Date: 10/27/2023 Ordering Doctor: [...] skin cancer at age 58. LOCATION: The [facility] BREAST COMPOSITION: The breasts are extremely dense, [...] Signed By: 10/27/23 1609 DD/ 1608 TD/TT: Heavy Equipment Service Manager: Procedure Note Radiology, Radiologist, - 10/27/2023 [place] [address] Mammography Report Signed Patient: ELI TINEO LMR#: [id number] : 1955cct:[id number] Age/Sex: 67 / FADM Date: 10/27/23 Loc: MAMMO Attending Dr: Ismael Reese D.O. Ordering Physician: Ismael Reese D.O.Results: Date of Service: 10/27/23Follow Up: Procedure(s): MM tomosynthesis screening BI Accession Number(s): [id number] cc: Ismael Reese D.O. Patient Name: ELI TINEO MR#: [id number] : 1955 Exam Date: 10/27/2023 Ordering Doctor: [...] skin cancer at age 58. LOCATION: The [facility] BREAST COMPOSITION: The breasts are extremely dense, [...] M.D. Signed By:10/27/23 1609 DD/ 1608 TD/TT: Heavy Equipment Service Manager: Ismael Reese DO [facility] Final Result documented in this encounter Visit Diagnoses Not on filedocumented in this encounter
--- OUTSIDE RECORDS SUMMARY | 2024-10-27 12:24 | XMS_ITS | Encounter Summary ---
Author Organization [facility] Address [address] [place] [address] Care Team Providers Care Delphi Developer Name Role Phone Unavailable Primary Care Provider Unavailabl e Encounter Details Date Type Department Care Team (Late Contact Info) Description 09/05/2022 Abstract [facility] [place] [address] Ismael Reese DO [address] [place], [facility]11 Social History Tobacco Use Types Packs/Day Years [...] 07/28/2025 9:00 AM EDT Office Visit [facility] [address] [place] [address] Ismael Reese DO [address] [place], [place] [phone] documented as of this encounter Visit Diagnoses Not on filedocumented in this encounter
--- OUTSIDE RECORDS SUMMARY | 2024-10-27 12:24 | XMS_ITS | Clinical Summary ---
Author Organization [facility] Address [facility] [id number] [address] [place] [address] Care Team Providers Care Helper [employer] Name Role Phone Unavailable Primary Care Provider [...] 11/01/2024 Medical Devices Not on file Insurance [employer]
--- OUTSIDE RECORDS SUMMARY | 2024-10-27 12:24 | XMS_ITS | Clinical Summary ---
Author Organization [facility] Address [address] [place] [address] Care Team Providers Care Practice Office Associate Name Role Phone Unavailable Primary Care Provider Unavailabl e Allergies Active Allergy Reactions Criticality Noted Date Comments Codeine GI intolerance 07/22/2024 Medications estradiol (Estrace) 0.5 MG tabletIndication s:Vaginal dryness Take 1 tablet (0.5 mg) by mouth Daily 30 tablet 11 11/11/2023 Active Encounters Date Type Department Care Team Description 08/03/2024 Orders Only [facility] [address] [facility] [place] [phone] Debbie Castañeda LPN from Last 3 Months Family History Medical [...] Description 07/28/2025 9:00 AM EDT Office Visit [facility] [address] [place] [phone] Ismael Reese DO [address] [place] [address] Insurance [employer]
--- OUTSIDE RECORDS SUMMARY | 2024-10-27 12:24 | XMS_ITS | Encounter Summary ---
Author Organization [facility] Address [address] [place] [address] Care Team Providers Care Car Repairer Helper Name Role Phone Unavailable Primary Care Provider Unavailabl e Encounter Details Date Type Department Care Team (Late st Contact Info) Description 03/20/2023 Clinisync Result Encounter [facility] External Department Unsolicited Ismael Reese, DO [address] [place] [address] Social History Tobacco Use Types Packs/Day Years [...] EDT Office Visit [facility] [place] [facility] [address] [place] [phone] Ismael Reese, DO [address] [place] [address] documented as of this encounter Procedures Procedure Name Priority Date/Time Associated Diagnosis Comments MM TOMOSYNTHESIS DIAGNOSTIC RT 03/20/2023 12:04 PM EST documented in this encounter Results * MM TOMOSYNTHESIS DIAGNOSTIC RT (03/20/2023 12:04 PM EST) Anatomical Region Laterality Modality Other 03/20/2023 12:0 4 PM EST Narrative 03/20/2023 12:05 PM EST The [address] [address] Mammography Report Signed Patient: ELI TINEO MR#: [id number] : 1955 Acct:[id number] Age/Sex: 67 / F ADM Date: 03/20/23 Loc: MAMMO Attending Dr: Ismael Reese D.O. Ordering Physician: Ismael Reese D.O. Results: Date of Service: 03/20/23 Follow Up: Procedure(s): MM tomosynthesis diagnostic RT Accession Number(s): [id number] cc: Ismael Reese D.O. Patient Name: ELI TINEO MR#: [id number] : 1955 Exam Date: 03/20/2023 Ordering Doctor: [...] skin cancer at age 58. LOCATION: The [facility] BREAST COMPOSITION: Extremely dense, which lowers the [...] Horton M.D. Signed By: 03/20/23 1205 DD/ 120 TD/TT: Carbide Powder Processor: Procedure Note Radiology, Radiologist, - 03/20/2023 [place] [address] Mammography Report Signed Patient: ELI TINEO LMR#: [id number] : 1955cct:[id number] Age/Sex: 67 / FADM Date: 03/20/23 Loc: MAMMO Attending Dr: Ismael Reese D.O. Ordering Physician: Ismael Reese D.O.Results: Date of Service: 03/20/23Follow Up: Procedure(s): MM tomosynthesis diagnostic RT Accession Number(s): [id number] cc: Ismael Reese D.O. Patient Name: ELI TINEO MR#: [id number] : 1955 Exam Date: 03/20/2023 Ordering Doctor: [...] skin cancer at age 58. LOCATION: [facility] BREAST COMPOSITION: Extremely dense, which lowers the [...] M.D. Signed By:03/20/23 1205 DD/ 1204 TD/TT: Carbide Powder Processor: us [facility] DO [facility] Final Result documented in this encounter Visit Diagnoses Not on filedocumented in this encounter
--- OUTSIDE RECORDS SUMMARY | 2024-10-27 12:24 | XMS_ITS | Encounter Summary ---
Author Organization [facility] Address [address] [place] [address] Care Team Providers Care Desk Interviewer Name Role Phone Unavailable Primary Care Provider Unavailabl e Encounter Details Date Type Department Care Team (Late Contact Info) Description 08/03/2024 Orders Only [facility] [employer] [place] [address] Debbie Castañeda LPN [address] [facility] [place] [address] Social History Tobacco Use Types Packs/Day Years [...] AM EDT Office Visit [facility] [address] [employer] [place] [address] Ismael Reese DO [address] [facility] [address] [place] [place], [place] [phone] documented as of this encounter Procedures Procedure Name Priority Date/Time Associated Diagnosis Comments PAP SMEAR Routine 07/22/2024 12:00 AM EDT documented in this encounter Results * Pap Smear (07/22/2024 12:00 AM EDT) Swab Cervical swab / Unknown us Hugh Nurse [facility] LAB CYTOLOGY ORDERABLES Final Result EXTERNAL LAB documented in this encounter Visit Diagnoses Not on filedocumented in this encounter
--- OUTSIDE RECORDS SUMMARY | 2024-10-27 12:24 | XMS_ITS | Encounter Summary ---
Author Organization [facility] Address [address] [place] [address] Care Team Providers Care Clerical Office Name Role Phone Unavailable Primary Care Provider Unavailabl e Encounter Details Date Type Department Care Team (Late Contact Info) Description 08/19/2022 Abstract [facility] [place] [address] Ismael Reese DO [address] [place], [facility]11 Social History Tobacco Use Types Packs/Day [...] Office Visit [facility] [address] [place] [address] Ismael Reese DO [address] [place], [place] [phone] documented as of this encounter Visit Diagnoses Not on filedocumented in this encounter
--- OUTSIDE RECORDS SUMMARY | 2024-10-27 12:24 | XMS_ITS | Encounter Summary ---
Author Organization [facility] Address [address] [place] [address] Care Team Providers Care Coal Grader Name Role Phone Unavailable Primary Care Provider Unavailabl e Encounter Details Date Type Department Care Team (Late Contact Info) Description 08/15/[address] [facility] [place] [address] Ismael Reese DO [address], [facility] Social History Tobacco Use Types Packs/Day [...] Office Visit KENNEDY [facility]ERUMEN [address] [place] [address] Ismael Reese DO [address], [place] [id number] documented as of this encounter Visit Diagnoses Not on filedocumented in this encounter
--- NOTE | 2024-10-27 12:25 | MM_ITS ---
Patient Name: KASSI MONAHAN MR#: [id number] : 1955 Exam Date: 10/27/2024 Ordering Doctor: DR GUY ESTES . RADIOLOGY REPORT PROCEDURE: MM TOMOSYNTHESIS SCREENING BI COMPARISON: MM TOMOSYNTHESIS SCREENING BI, 10/27/2023. MM TOMOSYNTHESIS DIAGNOSTIC RT, 03/20/2023. MM DIAGNOSTIC MAMMO UNILAT RT, 08/23/2022. MM TOMOSYNTHESIS SCREENING BI, 08/05/2022. INDICATIONS: breast cancer screening by mammogram Calculator Name NCI Breast Cancer Risk Assessment Tool 5 Year Breast Cancer Risk 3.50% Lifetime Breast Cancer Risk 10.10% Personal Breast Cancer No Personal Ovarian Cancer No Treatments None Family Cancers Grandmother-maternal with breast cancer at age 60; Mother with skin cancer at age 58; Sister with skin cancer at age ~40; Brother with skin cancer at age ~60. LOCATION: [facility] BREAST COMPOSITION: The breasts are heterogeneously dense, which may obscure small masses. FINDINGS: DIAGNOSTIC CATEGORY 0--INCOMPLETE: NEED ADDITIONAL IMAGING EVALUATION. RIGHT BREAST: No significant suspicious finding. LEFT BREAST: Asymmetry central aspect of the left breast, middle depth on cc view only. RECOMMENDATIONS: ADDITIONAL MAMMOGRAPHIC VIEWS REQUIRED: LEFT BREAST - spot-compression/true lateral views, possible ultrasound recommended. Dictated by: Tiburcio Calderon DO on 10/27/2024 at 14:57 Approved by: Tiburcio Calderon DO on 10/27/2024 at 15:07
--- OUTSIDE RECORDS SUMMARY | 2024-10-27 12:42 | XMS_ITS | CCD ---
Author Organization [facility] Care Team Providers Care Wire Stockkeeper Name Role Phone BLAKE, DR PIMENTEL Primary Care Unavailable HUGH ., DR TOVAR Admitting Unavailable HUGH ., DR TOVAR Consulting Unavailable HUGH ., DR TOVAR Attending Unavailable CHARLEEN, DR JOSE Petit Consulting Unavailable HUGH ., DR TOVAR Admitting Unavailable HUGH ., DR TOVAR Consulting Unavailable HUGH ., DR TOVAR Attending Unavailable BLAKE, DR PIMENTEL Primary Care Unavailable Unavailable Primary Care Provider Unavailabl e GUY REESE Attending Unavailable Allergies Allergy Classification Reported Allergen(s) Allergy Type Date of Onset Reaction(s) Facility (1 source) Codeine Drug Allergy GI intolerance [facility] Work Phone: Medications Current Medications Medication Drug Class(es) Dates Sig (Normalized) Sig (Original) estradiol 0.5 mg oral tablet (2 sources) Estrogen Start: 11-11-2023 End: 11-10-2024 take 1 tablet by mouth once daily estradiol (Estrace) 0.5 MG tablet Indications: Vaginal dryness Take 1 tablet (0.5 mg) by mouth Daily 30 tablet 11/11/2023 11/10/2024 Active Problems Problem Classification Problem Date Documented Da te Episodic/Chronic Other screening for suspected conditions (not mental disorders or infectious disease) (4 sources) Encounter for screening mammogram for malignant neoplasm of breast; Translations: [ENC SCR MAMMO MALIG NEOPLASM BREAST] Onset: 07-20-2021 Episodic Residual codes; unclassified (1 source) Family history of malignant neoplasm of breast; Translations: [FAMILY HX MALIG NEOPLASM OF BREAST] Onset: 07-26-2021 Episodic Residual codes; unclassified (1 source) Family history of malignant neoplasm of other organs or systems; Translations: [FAM HX MALIG NEOPLASM OTH ORGN/SYS] Onset: 07-26-2021 Episodic Results Test Name Value Interpretation Reference Range Facil ity IGP,APTIMA HPV,AGE GDLNon AGE GDLN ACOG TESTING Note . [facility] Comment on above: TESTS RESULT FLAG UNITS REF RANGE LAB Clinician Provided Cytology Information Source.............Vagina No. of containers..01 ThinPrep Vial Age Algo ACOG Maritza... Note 01 <21 or >65 or no age provided FLAG LEGEND: L-Low Normal,H-High Normal,LL-Alert Low,HH-Alert High <-Panic Low,>-Panic High,A-Abnormal,AA-Critical Abnormal Performed at: 01 =G [address] [address] Gia Garcia MD, PAP IG (IMAGE GUIDED) Note . [facility] Comment on above: TESTS RESULT FLAG UNITS REF RANGE LAB DIAGNOSIS: 02 NEGATIVE FOR INTRAEPITHELIAL LESION OR MALIGNANCY. FUNGAL ORGANISMS MORPHOLOGICALLY CONSISTENT WITH JAME SPECIES ARE PRESENT. Specimen adequacy: 02 Satisfactory for evaluation. No endocervical cells are present. This is consistent with a history of hysterectomy. Performed by: 02 Charlie Khan Edger Operator ([facility]) . 02 Note: Note 02 The Pap smear is a screening test designed to aid in the detection of premalignant and malignant conditions of the uterine cervix. It is not a diagnostic procedure and should not be used as the sole means of detecting cervical cancer. Both false-positive and false-negative reports do occur. Test Methodology: Note 02 This liquid based ThinPrep(R) pap test was screened with the use of an image guided system. FLAG LEGEND: L-Low Normal,H-High Normal,LL-Alert Low,HH-Alert High <-Panic Low,>-Panic High,A-Abnormal,AA-Critical Abnormal Performed at: [address] [address] Gia Garcia MD, Performed at: = - [facility] [address] [id number] Anesthesiology Technologist: Gia Garcia MD, Phone: [phone] Performed at: [facility] [id number] Anesthesiology Technologist: Gia Garcia MD, Phone: [phone] [facility]M S[facility] 3D NANDO CADon 07-20-2021 MG MAMM SCREEN 3D NANDO CAD Patient: ELI TINEO Exam Date: 07/20/2021 : 1955 Gender:F Ordering : DR GUY REESE . Admission #: [id number] Family : Order #: [id number] CLICK HERE TO VIEW EXAM RADIOLOGY REPORT PROCEDURE: MAMMOGRAM SCREENING 3D BILATERAL CAD COMPARISON: MG MAMM SCREEN 3D NANDO CAD, 07/19/2020. MG MAMM SCREEN NANDO W CAD, 07/30/2019. INDICATIONS: Screening mammography Calculator Name NCI Breast Cancer Risk Assessment Tool 5 Year Breast Cancer Risk 3.50% Lifetime Breast Cancer Risk 11.60% Personal Breast Cancer No Personal Ovarian Cancer No Treatments None Family Cancers Grandmother-maternal with breast cancer at age 60; Mother with skin cancer at age 58; Sister with skin cancer at age 40; Brother with skin cancer at age 60. LOCATION: [facility] BREAST COMPOSITION: Extremely dense, which lowers the sensitivity of mammography. FINDINGS: DIAGNOSTIC CATEGORY 1--NEGATIVE. RIGHT BREAST: No significant suspicious finding. No significant change has occurred. LEFT BREAST: No significant suspicious finding. No significant change has occurred. RECOMMENDATIONS: ROUTINE MAMMOGRAM AND CLINICAL EVALUATION IN 12 MONTHS. PLEASE NOTE: A NORMAL MAMMOGRAM DOES NOT EXCLUDE THE POSSIBILITY OF BREAST CANCER. A CLINICALLY SUSPICIOUS PALPABLE LUMP SHOULD BE BIOPSIED. Dictated by: Jose Barajas M.D. on 07/20/2021 at 10:59 Approved by: Jose Barajas M.D. on 07/20/2021 at 11:06 Normal [facility] Encounters Encounter Date Encounter Type Care Provider Facility Start: 07-22-2024 End: 07-22-2024 Bamboo flowsheet Guy Hugh DO Work Phone: [facility] Start: 07-22-2024 End: 07-26-2024 Bamboo flowsheet Guy Hugh DO Work Phone: [facility] Start: 07-22-2024 End: 07-26-2024 Clinisync Result Encounter Guy Hugh DO Work Phone: [facility] Unsolicited Start: 07-22-2024 End: 07-22-2024 ambulatory GUY REESE Not Available Start: 07-16-2022 End: 07-16-[address] GUY REESE . Facility:[facility] Start: 07-20-2021 End: 07-21-[address] DOCTOR LOZANO Facility:[facility] Procedures Date Procedure Procedure Detail Performing Clinician Start: 07-22-2024 IGP,APTIMA HPV,AGE GDLN Guy Reese DO Work Phone: Plan of Treatment Date Care Activity Detail Author Start: 07-28-2025 End: 07-28-2025 Patient encounter procedure 07/28/2025 9:00 AM EDT Office Visit [facility] [address] [facility] [place] [id number] Guy Reese, DO [address] [place], [place] [id number] [facility] Start: 07-22-2024 End: 07-22-2024 Patient encounter procedure 07/22/2024 8:30 AM EDT Office Visit [facility] [address] [place] [address] Guy Reese, DO [address] [place] [address] Arrived [facility] Comment on above: Arrived Payers Date P[facility] Category [id number] 2022 Unknown [id number] 2019 Unknown [id number] 1955 Unknown [id number] 1955 Unknown [id number] 1955 Unknown [id number] Social History Date Type Detail Facility [facility]: [facility] Start: 08-12-2022 Tobacco use and exposure Smoke less tobacco non-user [facility] Start: 07-22-2023 End: 07-22-2024 Alcoholic beverage intake Lifetime non-drinker (finding) [facility] Start: 08-14-2022 End: 07-22-2024 History of Social function [facility] Start: 08-14-2022 End: 07-22-2024 Tobacco use panel [facility] Start: 1955 Sex assigned at Not on file [facility] Summary Purpose Family History No Family History Records FoundNo Family History Records Found Advance Directives No Advanced Directives Records FoundNo Advanced Directives Records Found Additional Source Comments INFORMATION SOURCE (unrecogn ized section and content) DATE CREATED AUTHOR 07/17/2022 [facility] DATE CREATED AUTHOR AUTHOR'S ORGANIZ ATION 07/28/[address] [facility] EPIC FOR RECORDS PERTAINING TO PATIENTS WHO ARE OR HAVE BEEN ENROLLED IN A CHEMICAL DEPENDENCY/SUBSTANCEABUSE PROGRAM, SOME INFORMATION MAY BE OMITTED. This clinical summary was aggregated from multiple sources. Caution should be exercised in using it in the provision of clinical care. This summary normalizes information from multiple sources, and as a consequence, information in this document may materially change the coding, format and clinical context of patient data. In addition, data may be omitted in some cases. CLINICAL DECISIONS SHOULD BE BASED ON THE PRIMARY CLINICAL RECORDS. [employer] provides no warranty or guarantee of the accuracy or completeness of information in this document.
== END 2024-10-27 12:23 | disposition home or self-care (01) ==
LOC: MAMMO 12:22
PROVIDERS: PCP Obstetrics & Gynecology; Visit Provider Obstetrics & Gynecology
DX: Z12.31 Encounter for screening mammogram for malignant neoplasm of breast (principal); Z78.0 Asymptomatic menopausal state; Z80.3 Family history of malignant neoplasm of breast; Z80.8 Family history of malignant neoplasm of other organs or systems; M81.0 Age-related osteoporosis without current pathological fracture; M85.88 Other specified disorders of bone density and structure, other site
CPT/HCPCS: 77063; 77067; 77080